=== PATIENT | female | born 1970 | race Caucasian/White ===

== ENCOUNTER 2016-12-26 09:29 | Emergency (ER) | payer OTHER ==
[2016-12-26 09:38] VITALS: BP 120/84; PULSE 124; TEMP 99.4; BMI 21.6
--- NOTE | 2016-12-26 10:22 | PDOC ---
History of Present Illness - General Chief Complaint: Cold Symptoms Stated Complaint: FLU SYMP Time Seen by Provider: 12/26/16 09:48 - History of Present Illness Initial Comments: 12/26/16 10:17 CHIEF COMPLAINT: URI symptoms HISTORY OF PRESENT ILLNESS: 46 yo F with no significant PMH presents to [facility] with cough and sinus pressure x 10 days. Patient denies any fever but does report chills. She also reports discomfort to her stomach but denies any pain to the stomach. No recent travel or sick contacts. PAST MEDICAL HISTORY: Denies past medical history FAMILY HISTORY: Denies SOCIAL HISTORY:Denies tobacco, alcohol, illicit drug use. SURGICAL HISTORY: Denies ALLERGIES: No known drug allergies REVIEW OF SYSTEMS General/Constitutional: Chills. Denies weakness, weight change. HEENT: Sinus pressure. Denies change in vision. Denies ear pain or discharge. Denies sore throat. Cardiovascular: Denies chest pain or shortness of breath. Respiratory: Productive cough x 10 days. Denies wheezing, or hemoptysis. Gastrointestinal: Denies nausea, vomiting, diarrhea or constipation. Denies rectal bleeding. Genitourinary: Denies dysuria, frequency, or change in urination. Musculoskeletal: Denies joint or muscle swelling or pain. Denies neck or back pain. Skin and breasts: Denies rash or easy bruising. PHYSICAL EXAM General Appearance: Well-appearing, appropriately dressed. No apparent distress , no intoxication. HEENT: Congestion, rhinorrhea, post-nasal drip. Tenderness to frontal and maxillary sinus. EOMI, PERRLA. No conjunctival pallor. No photophobia, scleral icterus. Neck: Supple. Trachea midline. No tenderness, rigidity, carotid bruit, stridor , lymphadenopathy, or thyromegaly. Respiratory/Chest: Lungs CTAB. No shortness of breath, chest tenderness, respiratory distress, accessory muscle use. No crackles, rales, rhonchi, stridor , wheezing, dullness Cardiovascular: RRR. S1, S2. Gastrointestinal/Abdominal: Normal bowel sounds. Abdomen soft, non-distended. No tenderness or rebound tenderness. No organomegaly, pulsatile mass, guarding , hernia, hepatomegaly, splenomegaly. Musculoskeletal/Extremities: Normal inspection. FROM of all extremities, normal capillary refill. No tenderness to extremities, pedal edema, swelling, erythema or deformity. Integumentary: Appropriate color, dry, warm. No cyanosis, erythema, jaundice or rash Neurologic: die operator II-XII intact. Fully oriented, alert. Appropriate mood/affect. Motor strength 5/5. No appreciable EOM palsy, facial droop or sensory deficit. 12/26/16 10:20 Past History - Past Medical History Allergies/Adverse Reactions: Allergies Allergy/AdvReac Type Severity Reaction Status Date / Time No Known Allergies Allergy Verified 12/26/16 09:34 Home Medications: Ambulatory Orders Azithromycin [Zithromax 250mg Tablets -] 250 mg PO DAILY #5 tab 12/26/16 Ibuprofen 600 mg PO TID PRN #21 tablet 12/26/16 Suicide Attempt (Hx): No Other medical history: none - Psycho/Social/Smoking Cessation Hx Anxiety: No Suicidal Ideation: No Smoking Status: No Smoking History: Never smoked Years of Tobacco Use: 0 Have you smoked in the past 12 months: No Number of Cigarettes Smoked Daily: 0 Cigars Per Day: 0 Information on smoking cessation initiated: No Hx Alcohol Use: No Drug/Substance Use Hx: No Substance Use Type: None *Physical Exam - Vital Signs Last Vital Signs Temp Pulse Resp BP Pulse Ox 99.4 F 124 H 18 120/84 100 12/26/16 09:35 12/26/16 09:35 12/26/16 09:35 12/26/16 09:35 12/26/16 09:35 Medical Decision Making - Medical Decision Making 12/26/16 10:20 46 yo F with no significant PMH presents to [facility] with cough and sinus pressure x 10 days. VS remarkable for HR 124 -Motrin 600 mg -Influenza rapid swab Flu negative. Give symptoms persisting over 10 days, will rx antibiotics for URI. Advised patient to take medications as prescribed and f/u with PMD this week. Advised patient of signs and symptoms for return to ER; patient verbalized understanding and agrees to plan. *DC/Admit/Observation/Transfer Diagnosis at time of Disposition: Upper respiratory infection Qualifiers: URI type: unspecified URI Qualified Code(s): J06.9 - Acute upper respiratory infection, unspecified - Discharge Dispostion Disposition: HOME Condition at time of disposition: Stable Admit: No - Prescriptions Prescriptions: Ibuprofen 600 mg PO TID PRN #21 tablet PRN Reason: pain or fever Azithromycin [Zithromax 250mg Tablets -] 250 mg PO DAILY #5 tab - Referrals Referrals: Chel Malagon [Primary Care Provider] - - Patient Instructions Printed Discharge Instructions: DI for Viral Upper Respiratory Infection -- Adult Additional Instructions: Please take medication as prescribed. Take Motrin for fever. Follow up with your primary care doctor if symptoms do not improve within the next 2-3 days. If you experience any shortness of breath, chest pain, palpitations, nausea, vomiting, or diarrhea, or any new or worsening symptoms, please return to the ER.
[2016-12-26] MEDS ORDERED: IBUPROFEN 600 MG TABLET (FP) PO ONE ×2 (11:01→11:05)
== END 2016-12-26 11:44 | disposition home or self-care (01) ==
LOC: JERFT 09:29
DX: J06.9 Acute upper respiratory infection, unspecified (principal)
CPT/HCPCS: 87804; 99281-25

== ENCOUNTER 2021-01-21 04:48 | Day surgery (SDC) | payer OTHER ==
[2021-01-20 09:18] VITALS: BMI 26.2
[2021-01-21 12:46] VITALS: BP 138/72; PULSE 65; TEMP 97.5
== END 2021-01-21 12:55 | disposition home or self-care (01) ==
LOC: JRADIR 04:48
PROVIDERS: ATTEND Urology
PROC: BT2 Imaging, Urinary System, Computerized Tomography (CT Scan) (ICD-10-PCS; principal; 2021-01-21)
PROC: 0T903ZX Drainage of Right Kidney, Percutaneous Approach, Diagnostic (ICD-10-PCS; 2021-01-21)
DX: N28.1 Cyst of kidney, acquired (principal)
CPT/HCPCS: 50390; 87070; 87075; 87102; 87116; 87205; 87206; 87210; 88108; 88305-TC